=== PATIENT | female | born 1980 | race Caucasian/White ===

== ENCOUNTER 2017-09-02 07:51 | Emergency (ER) | payer MEDICAID, OTHER ==
[~2017-09-02] VITALS: Ht 157.5 cm; Wt 75.0 kg
[2017-09-02 08:07] VITALS: BP 110/81
== END 2017-09-02 08:25 | disposition home or self-care (01) ==
LOC: EMS 07:54
DX: J06.9 Acute upper respiratory infection, unspecified (principal); J40 Bronchitis, not specified as acute or chronic
CPT/HCPCS: 99282